=== PATIENT | male | born 2000 | race Caucasian/White ===

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

== ENCOUNTER 2020-08-18 09:35 | Emergency (ER) | payer BC ==
[2020-08-18 09:46] VITALS: BP 128/72; PULSE 74
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
[2020-08-18] MEDS ORDERED: Lidocaine 1% 20 ML MDV INJECT ONE (10:42)
[2020-08-18] MEDS ORDERED: Lidocaine 1% 10 ML MDV ONE (10:43)
[2020-08-18] MEDS ORDERED: Lidocaine 1% 10 ML MDV INJECT ONE ×2 (10:52→12:45)
[2020-08-18] MEDS ORDERED: ceFAZolin 1 GM Vial IM ONE (12:54)
--- NOTE | 2020-08-19 08:36 | CR ---
Right femur: AP and lateral views of the right femur were obtained. Comparison: No prior femur studies available. Joint space within the right hip is maintained. Joint space within the right knee is maintained. Small foreign body is projected within the anterior mid thigh having a metallic density. This finding measures approximately 3.8 mm. No acute osseous abnormality is appreciated. Impression: 1. Anteriorly placed radiopacity within the mid thigh. 2. Right femur study is otherwise unremarkable. Diagnostic code #3
--- NOTE | 2020-08-19 08:36 | CR ---
Femur: Single crosstable lateral view was obtained of the femur area. Study shows a radiopaque foreign object anteriorly which measures on this exam 4.4 mm. Small marking needle is seen next to this finding on this view. Impression: 1. Foreign body localization as noted above. Diagnostic code #2
--- NOTE | 2020-08-19 08:37 | CR ---
Right femur: 2 views of the right femur were obtained. Study is centered to the foreign body. Small superficial marking area is noted on the lateral view. Small foreign body remains. No additional abnormality is appreciated. Impression: 1. Findings show localization of small superficial foreign body. Diagnostic code #2
== END 2020-08-18 13:35 | disposition home or self-care (01) ==
LOC: JD.ED 09:35
DX: S70.351A Superficial foreign body, right thigh, initial encounter (principal); F17.290 Nicotine dependence, other tobacco product, uncomplicated; W34.00XA Accidental discharge from unspecified firearms or gun, initial encounter
CPT/HCPCS: 36415; 73552-26-RT; 73552-RT; 80053; 85025; 96372; 99283; 99284; J0690